=== PATIENT | female | born 1995 | race Caucasian/White ===

== ENCOUNTER 2018-11-19 04:37 | Inpatient (IN) | payer OTHER ==
[~2018-11-19] VITALS: Ht 157.5 cm; Wt 2.7 kg
[2018-11-19] MEDS ORDERED: PRENATAL FORMU1 EAC2 PO (10:50)
== END 2018-11-21 12:34 | disposition home or self-care (01) | DRG 788 ==
LOC: LDR 04:37 → OB/GYN 15:51 → O/R 15:59 → OB/GYN 18:54
PROVIDERS: Obstetrics & Gynecology
PROC: 4A1HXCZ Monitoring of Products of Conception, Cardiac Rate, External Approach (ICD-10-PCS; 2018-11-19)
PROC: 4A033R1 Measurement of Arterial Saturation, Peripheral, Percutaneous Approach (ICD-10-PCS; 2018-11-19)
PROC: 10D00Z1 Extraction of Products of Conception, Low, Open Approach (ICD-10-PCS; principal; 2018-11-19 12:30)
DX: O32.8XX0 Maternal care for other malpresentation of fetus, not applicable or unspecified (principal); Z3A.38 38 weeks gestation of pregnancy; Z37.0 Single live birth